=== PATIENT | female | born 1945 | race Caucasian/White ===

== ENCOUNTER 2018-08-01 14:42 | Outpatient (CLI) | payer MEDICARE, BC ==
--- NOTE | 2018-08-01 15:53 | XRAY Report ---
Reason: FINGER PAIN, RIGHT Procedure Date: 08/01/2018 Accession Number: [id number] / [id number] Procedure: XR - Finger(s) RT CPT Code: FULL RESULT: EXAM: RIGHT FIFTH DIGIT RADIOGRAPHY EXAM DATE: 08/01/2018 03:39 PM. CLINICAL HISTORY: Pain and swelling to the distal phalanx of the right fifth ray. Patient states that she jammed her finger when she fell. COMPARISON: None. TECHNIQUE: 3 views. FINDINGS: Bones: There is a fracture of the proximal aspect of the fifth middle phalanx with apex volar angulation and approximately 3 mm of volar translation of the distal fracture fragment and no intra-articular extension. Joints: Normal. No joint subluxations. Soft Tissues: Soft tissue swelling is seen around the fracture. IMPRESSION: Fifth finger fracture as described. RADIA The above findings left fifth middle phalanx fracture were discussed with Yajaira Jackson by Dr. Akshat Norris at 15:51 hrs on 08/01/18.
== END 2018-08-01 14:43 | disposition home or self-care (01) ==
LOC: DI 14:42
PROVIDERS: ATTEND Nurse Practitioner Family
DX: S62.626A Displaced fracture of middle phalanx of right little finger, initial encounter for closed fracture (principal)
CPT/HCPCS: 73140

== ENCOUNTER 2018-08-27 13:16 | Outpatient (CLI) | payer MEDICARE, BC | END 2018-08-27 13:17 | disposition home or self-care (01) | LOC: DI 13:16 | PROVIDERS: ATTEND Nurse Practitioner Family | DX: Z12.31 Encounter for screening mammogram for malignant neoplasm of breast (principal) | CPT/HCPCS: 77063; 77067 ==

== ENCOUNTER 2019-09-15 10:29 | Outpatient (CLI) | payer MEDICARE, BC ==
--- NOTE | 2019-09-16 11:51 | Mammography Report ---
Reason: ROUTINE MAMMO Procedure Date: 09/15/2019 Accession Number: [id number] / [id number] Procedure: MGS - Screening Mammo Dig w/Implants CPT Code: Final Report FULL RESULT: EXAM: Screening Mammo Dig w/Implants DATE: 09/15/2019 11:00 AM CLINICAL HISTORY: The patient is an asymptomatic 74-year-old female. Prior benign breast augmentation - silicone implants. No reported personal nor family history of breast cancer. TECHNIQUE: (B) - Bilateral CC and MLO views were obtained. Displaced implant views. COMPARISON: 08/27/2018, 01/10/2016, 11/07/2011 and 05/30/2010 PARENCHYMAL PATTERN: (A) - The breasts demonstrate scattered fibroglandular densities bilaterally. FINDINGS: Stable bilateral subpectoral silicone implants. The pattern of asymmetry is unchanged given positional differences. There are no suspicious masses, calcifications, or areas of distortion. IMPRESSION: Benign findings. BI-RADS category 2. RECOMMENDATION: (ANNUAL) - Recommend routine annual screening mammography. BI-RADS CATEGORY: (2) - Benign Findings. STANDARD QUALIFYING STATEMENTS: 1. This examination was reviewed with the aid of Computer-Aided Detection (CAD). 2. A negative or benign imaging report should not preclude biopsy if clinically suspicious findings are present. 3. Dense breasts may obscure an underlying neoplasm.
== END 2019-09-15 10:30 | disposition home or self-care (01) ==
LOC: DI.S 10:29
PROVIDERS: ATTEND Registered Nurse
DX: Z12.31 Encounter for screening mammogram for malignant neoplasm of breast (principal); Z98.82 Breast implant status
CPT/HCPCS: 36415; 77067; 80053; 80061; 83721; 84443; 85025

== ENCOUNTER 2019-09-15 12:46 | Outpatient (CLI) | payer MEDICARE, BC ==
[2019-09-15 17:21] LABS: BASOPHILS # (AUTO) 0.1 10^3/uL (0.0-0.1); BASOPHILS % (AUTO) 1.2 %; EOSINOPHILS # (AUTO) 0.4 10^3/uL (0.0-0.7); EOSINOPHILS % (AUTO) 4.9 %; HGB - HEMOGLOBIN 12.5 g/dL (12.0-16.0); LYMPHOCYTES # (AUTO) 1.7 10^3/uL (1.5-3.5); MEAN CORPUSCULAR HEMOGLOBIN 30.6 pg (27.0-31.0); MEAN CORPUSCULAR HGB CONC 31.7 g/dL (32.0-36.0); MEAN CORPUSCULAR VOLUME 96.6 fL (81.0-99.0); MEAN PLATELET VOLUME 10.7 fL (7.9-10.8); MONOCYTES # (AUTO) 0.9 10^3/uL (0.0-1.0); MONOCYTES % (AUTO) 11.4 %; NEUTROPHILS # (AUTO) 4.7 10^3/uL (1.5-6.6); NEUTROPHILS % (AUTO) 60.2 %; PLT - PLATELET COUNT 345 10^3/uL (130-450); RED BLOOD COUNT 4.08 10^6/uL (4.20-5.40); RED CELL DISTRIBUTION WIDTH 13.2 % (12.0-15.0); WHITE BLOOD COUNT 7.7 x10^3/uL (4.8-10.8)
[2019-09-15 17:49] LABS: ALBUMIN 4.2 g/dL (3.2-5.5); ALBUMIN/GLOBULIN RATIO 1.1 (1.0-2.2); ALKALINE PHOSPHATASE 62 IU/L (42-121); ALT ALANINE AMINOTRANSFERASE 18 IU/L (10-60); AST ASPARTATE AMINOTRANSFERASE 28 IU/L (10-42); BILIRUBIN,TOTAL 1.6 mg/dL (0.2-1.0); BUN - BLOOD UREA NITROGEN 27 mg/dL (6-20); CALCIUM 9.4 mg/dL (8.5-10.3); CARBON DIOXIDE - CO2 27 mmol/L (21-32); CHLORIDE 103 mmol/L (101-111); CHOL/HDL RATIO 3.4 (<4.4); CHOLESTEROL 219 mg/dL; GFR - MDRD 55 (>89); GLUCOSE 114 mg/dL (70-100); HDL CHOLESTEROL 64 mg/dL; LDL CHOLESTEROL,CALCULATED 141 mg/dL; LDL/HDL RATIO 2.2 (<4.4); SODIUM 138 mmol/L (135-145); TOTAL PROTEIN 7.9 g/dL (6.7-8.2); VLDL CHOLESTEROL 14 mg/dL
== END 2019-09-15 12:47 | disposition home or self-care (01) ==
LOC: LAB.S 12:46
PROVIDERS: ATTEND Registered Nurse
DX: E78.5 Hyperlipidemia, unspecified (principal); R03.0 Elevated blood-pressure reading, without diagnosis of hypertension
CPT/HCPCS: 36415; 80053; 80061; 83721; 84443; 85025

== ENCOUNTER 2020-03-30 11:45 | Outpatient (CLI) | payer BC, MEDICARE ==
[2020-03-30 15:32] LABS: CALCIUM 9.4 mg/dL (8.5-10.3); CREATININE 1.1 mg/dL (0.4-1.0)
== END 2020-03-30 11:46 | disposition home or self-care (01) ==
LOC: LAB.S 11:45
PROVIDERS: ATTEND Registered Nurse
DX: R94.4 Abnormal results of kidney function studies (principal)
CPT/HCPCS: 36415; 80048

== ENCOUNTER 2020-07-01 09:00 | Day surgery (SDC) | payer MEDICARE ==
[2020-07-01] MEDS ORDERED: fentaNYL 250 MCG/5 ML VIAL IVP ONE (09:01)
[2020-07-01] MEDS ORDERED: MIDAZOLAM 2 MG/2 ML VIAL IVP ONE (09:01)
[2020-07-01] MEDS ORDERED: LACTATED RINGERS 1,000 ML IV ONE (09:44)
[2020-07-01] MEDS ORDERED: LACTATED RINGERS 300 ML IV ONE (10:45)
[2020-07-01 11:16] VITALS: BP 133/65
== END 2020-07-01 09:01 | disposition home or self-care (01) ==
LOC: SDS 09:00
PROVIDERS: ATTEND Surgery
PROC: 0DBL8ZZ Excision of Transverse Colon, Via Natural or Artificial Opening Endoscopic (ICD-10-PCS; principal; 2020-07-01 11:30)
DX: Z12.11 Encounter for screening for malignant neoplasm of colon (principal); D12.3 Benign neoplasm of transverse colon; Z80.9 Family history of malignant neoplasm, unspecified; Z87.891 Personal history of nicotine dependence
CPT/HCPCS: 45380; J3010; J7120

== ENCOUNTER 2020-07-13 12:29 | Outpatient (CLI) | payer BC, MEDICARE ==
--- NOTE | 2020-07-13 12:59 | XRAY Report ---
PROCEDURE: Shoulder 3 View RT INDICATIONS: SHOULDER PAIN,RIGHT,TENDINITIS TECHNIQUE: 3 views of the shoulder were acquired. COMPARISON: None. FINDINGS: Bones: No fractures or dislocations. No suspicious bony lesions. Visualized ribs appear intact. Mi ld acromioclavicular joint and glenohumeral joint osteoarthritis. Soft tissues: Calcification noted adjacent to the lateral margin of the head of the humerus compatibl e with calcific tendinitis. IMPRESSION: 1. Mild, anechoic joint and glenohumeral joint osteoarthritis. 2. Rotator cuff calcific tendinitis. Reviewed by: Isabel Fields MD, PhD on 07/13/2020 12:58 PM PST Approved by: Isabel Fields MD, PhD on 07/13/2020 12:58 PM PST Station ID: [id number]
== END 2020-07-13 12:30 | disposition home or self-care (01) ==
LOC: DI.S 12:29
PROVIDERS: ATTEND Family Medicine
DX: M19.011 Primary osteoarthritis, right shoulder (principal); M75.31 Calcific tendinitis of right shoulder

== ENCOUNTER 2020-09-13 08:00 | Outpatient (CLI) | payer MEDICARE | END 2020-09-13 23:59 | disposition home or self-care (01) | LOC: LAB.R 08:00 | PROVIDERS: ATTEND Physician Assistant Medical | DX: R30.0 Dysuria (principal) | CPT/HCPCS: 87086; 87181 ==

== ENCOUNTER 2020-09-27 08:48 | Outpatient (CLI) | payer MEDICARE ==
[2020-09-27 16:02] LABS: BASOPHILS # (AUTO) 0.1 10^3/uL (0.0-0.1); BASOPHILS % (AUTO) 1.4 %; EOSINOPHILS # (AUTO) 0.3 10^3/uL (0.0-0.7); EOSINOPHILS % (AUTO) 4.1 %; HGB - HEMOGLOBIN 12.7 g/dL (12.0-16.0); LYMPHOCYTES # (AUTO) 1.7 10^3/uL (1.5-3.5); LYMPHOCYTES % (AUTO) 27.4 %; MEAN CORPUSCULAR HEMOGLOBIN 31.6 pg (27.0-31.0); MEAN CORPUSCULAR HGB CONC 32.3 g/dL (32.0-36.0); MEAN CORPUSCULAR VOLUME 97.8 fL (81.0-99.0); MEAN PLATELET VOLUME 10.4 fL (7.9-10.8); MONOCYTES # (AUTO) 0.6 10^3/uL (0.0-1.0); MONOCYTES % (AUTO) 9.1 %; NEUTROPHILS # (AUTO) 3.7 10^3/uL (1.5-6.6); NEUTROPHILS % (AUTO) 57.8 %; PLT - PLATELET COUNT 294 10^3/uL (130-450); RED BLOOD COUNT 4.02 10^6/uL (4.20-5.40); RED CELL DISTRIBUTION WIDTH 13.6 % (12.0-15.0); WHITE BLOOD COUNT 6.4 x10^3/uL (4.8-10.8)
[2020-09-27 16:34] LABS: ALBUMIN/GLOBULIN RATIO 1.1 (1.0-2.2); ALKALINE PHOSPHATASE 58 IU/L (42-121); ALT ALANINE AMINOTRANSFERASE 19 IU/L (10-60); AST ASPARTATE AMINOTRANSFERASE 24 IU/L (10-42); BILIRUBIN,TOTAL 0.7 mg/dL (0.2-1.0); BUN - BLOOD UREA NITROGEN 29 mg/dL (6-20); CALCIUM 9.2 mg/dL (8.5-10.3); CARBON DIOXIDE - CO2 26 mmol/L (21-32); CHLORIDE 103 mmol/L (101-111); CHOL/HDL RATIO 4.4 (<4.4); CHOLESTEROL 283 mg/dL; CREATININE 0.8 mg/dL (0.4-1.0); GLUCOSE 112 mg/dL (70-100); HDL CHOLESTEROL 65 mg/dL; LDL CHOLESTEROL,CALCULATED 193 mg/dL; SODIUM 136 mmol/L (135-145); TOTAL PROTEIN 7.8 g/dL (6.7-8.2); VLDL CHOLESTEROL 25 mg/dL
== END 2020-09-27 08:49 | disposition home or self-care (01) ==
LOC: LAB.S 08:48
PROVIDERS: ATTEND Registered Nurse
DX: N18.9 Chronic kidney disease, unspecified (principal); R30.0 Dysuria; R94.4 Abnormal results of kidney function studies; R03.0 Elevated blood-pressure reading, without diagnosis of hypertension; E78.5 Hyperlipidemia, unspecified
CPT/HCPCS: 36415; 80053; 80061; 83721; 85025

== ENCOUNTER 2020-11-30 12:54 | Outpatient (CLI) | payer MEDICARE, OTHER ==
--- NOTE | 2020-11-30 15:04 | CT Report ---
PROCEDURE: Low Dose Lung Cancer Screen INDICATIONS: HX OF SMOKING TECHNIQUE: Noncontrast low-dose 5 mm thick sections acquired from the pulmonary apices to the posterior costophr enic angles. 7 mm thick coronal and sagittal MIP reformats were then acquired. For radiation dose r eduction, the following was used: automated exposure control, adjustment of mA and/or kV according t o patient size. COMPARISON: None. FINDINGS: Image quality: Excellent. Lungs and pleura: Prominent partially calcified pleural parenchymal scarring is seen in the lung api rian bilaterally. Moderate centrilobular emphysema is noted. Perifissural groundglass 3 mm nodule in the left lower lobe (186/4). A few 2 mm solid nodules are see n in the posterior aspect of the left upper lobe (images 63, 64, and 68 of series 4). 4 mm solid subp leural nodule is seen at the right lung base (276/4). Mediastinum: Heart size is normal. No pericardial effusion. Moderate atherosclerotic calcifications are seen in the aorta. No mediastinal adenopathy by size criteria. Thoracic aorta and central pulmo nary arteries are normal in size. Mild/moderate aortic atherosclerosis. Esophagus is normal in calib er. No hiatal hernia. Bones and chest wall: Bilateral breast implants are present. No suspicious bony lesions. No vertebr al body compression fractures. No axillary or supraclavicular adenopathy by size criteria. The thyr oid is normal in size. Abdomen: Visualized upper abdomen solid organs and bowel loops appear normal in the absence of contr ast. IMPRESSION: 1. Nonspecific scattered 2 to 4 mm pulmonary nodules as described above. 2. Moderate centrilobular emphysema. 3. Biapical partially calcified pleural-parenchymal scarring. 4. Moderate coronary artery atherosclerotic calcifications. Lung RADS category 2; recommend annual screening with low-dose chest CT in 12 months. Reviewed by: Sina Bhat MD on 11/30/2020 2:02 PM KEVEN Approved by: Sina Bhat MD on 11/30/2020 2:02 PM AKJOJO Station ID: [id number]
== END 2020-11-30 12:55 | disposition home or self-care (01) ==
LOC: DI 12:54
PROVIDERS: ATTEND Registered Nurse
DX: Z12.2 Encounter for screening for malignant neoplasm of respiratory organs (principal); F17.210 Nicotine dependence, cigarettes, uncomplicated; J43.2 Centrilobular emphysema; R91.8 Other nonspecific abnormal finding of lung field

== ENCOUNTER 2021-11-16 11:07 | Outpatient (CLI) | payer MEDICARE, OTHER ==
--- NOTE | 2021-11-16 18:36 | CT Report ---
PROCEDURE: Low Dose Lung Cancer Screen INDICATIONS: CENTRILOBULAR EMPHYSEMA, MULTIPLE NODULES OF LUNG TECHNIQUE: Noncontrast low-dose images were acquired from the pulmonary apices to the posterior costophrenic ang les. Multiplanar MIP reformats were then acquired. For radiation dose reduction, the following was used: automated exposure control, adjustment of mA and/or kV according to patient size. COMPARISON: None. FINDINGS: Image quality: Excellent. Lungs and pleura: Extensive biapical pleural-parenchymal scarring with calcifications, and cephalad retraction of the pulmonary adonis typically represent chronic changes from granulomatous disease. Ther e is moderate centrilobular emphysema. Scattered tiny pulmonary nodules are stable. No new or increas ing pulmonary nodules. Mediastinum: Heart size is normal. No pericardial effusion. Moderate coronary artery calcifications . No mediastinal adenopathy by size criteria. Thoracic aorta and central pulmonary arteries are norm al in size. Esophagus is normal in caliber. No hiatal hernia. Bones and chest wall: No suspicious bony lesions. No vertebral body compression fractures. No axil jaqui or supraclavicular adenopathy by size criteria. The thyroid is normal in size and there are no incidental findings. Bilateral mammoplasties. Abdomen: Visualized upper abdomen solid organs and bowel loops appear normal in the absence of contr ast. IMPRESSION: 1. LungRads Category 2: Benign appearance or behavior-nodules with a very low likelihood of becoming a clinically active cancer due to size or lack of growth. 2. Annual follow-up low-dose noncontrast CT of the chest is recommended for lung cancer screening. 3. Clinically significant or potentially clinically significant findings (nonlung cancer): Extensive pleural-parenchymal scarring and cephalad retraction of the pulmonary adonis, typically indicating group program manager owen granulomatous disease, moderate centrilobular emphysema, moderate coronary artery calcifications. CLINICAL RECOMMENDATION STATEMENTS: In patients <35 years with an ITN detected on CT, MRI, or extrathyroidal ultrasound, the Committee re commends further evaluation with dedicated thyroid ultrasound if the nodule is "e1 cm and has no susp icious imaging features, and if the patient has normal life expectancy. In patients "e35 years with an ITN detected on CT, MRI, or extrathyroidal ultrasound, the Committee r ecommends further evaluation with dedicated thyroid ultrasound if the nodule is "e1.5 cm and has no s uspicious imaging features, and if the patient has normal life expectancy. (ACR, 2014) Reviewed by: Juan C Dave MD on 11/16/2021 5:35 PM [place] Approved by: Juan C Dave MD on 11/16/2021 5:35 PM [place] Station ID: [id number]
== END 2021-11-16 11:08 | disposition home or self-care (01) ==
LOC: DI 11:07
PROVIDERS: ATTEND Registered Nurse
DX: Z12.2 Encounter for screening for malignant neoplasm of respiratory organs (principal); J43.2 Centrilobular emphysema; R91.8 Other nonspecific abnormal finding of lung field; Z87.891 Personal history of nicotine dependence

== ENCOUNTER 2021-12-12 09:19 | Outpatient (CLI) | payer MEDICARE, OTHER ==
[2021-12-12 15:23] LABS: BASOPHILS # (AUTO) 0.1 10^3/uL (0.0-0.1); BASOPHILS % (AUTO) 1.7 %; EOSINOPHILS # (AUTO) 0.4 10^3/uL (0.0-0.7); EOSINOPHILS % (AUTO) 6.5 %; HCT - HEMATOCRIT 38.2 % (37.0-47.0); HGB - HEMOGLOBIN 12.2 g/dL (12.0-16.0); LYMPHOCYTES # (AUTO) 2.1 10^3/uL (1.5-3.5); LYMPHOCYTES % (AUTO) 31.5 %; MEAN CORPUSCULAR HEMOGLOBIN 30.7 pg (27.0-31.0); MEAN CORPUSCULAR HGB CONC 31.9 g/dL (32.0-36.0); MEAN PLATELET VOLUME 10.7 fL (7.9-10.8); MONOCYTES # (AUTO) 0.9 10^3/uL (0.0-1.0); MONOCYTES % (AUTO) 13.5 %; NEUTROPHILS # (AUTO) 3.1 10^3/uL (1.5-6.6); NEUTROPHILS % (AUTO) 46.5 %; PLT - PLATELET COUNT 314 10^3/uL (130-450); RED BLOOD COUNT 3.98 10^6/uL (4.20-5.40); RED CELL DISTRIBUTION WIDTH 13.3 % (12.0-15.0); WHITE BLOOD COUNT 6.6 x10^3/uL (4.8-10.8)
[2021-12-12 15:58] LABS: ALBUMIN 3.7 g/dL (3.2-5.5); ALBUMIN/GLOBULIN RATIO 1.2 (1.0-2.2); ALKALINE PHOSPHATASE 58 IU/L (42-121); ALT ALANINE AMINOTRANSFERASE 15 IU/L (10-60); AST ASPARTATE AMINOTRANSFERASE 21 IU/L (10-42); BILIRUBIN,TOTAL 1.1 mg/dL (0.2-1.0); BUN - BLOOD UREA NITROGEN 24 mg/dL (6-20); CALCIUM 9.3 mg/dL (8.5-10.3); CARBON DIOXIDE - CO2 24 mmol/L (21-32); CHLORIDE 98 mmol/L (101-111); CHOL/HDL RATIO 3.7 (<4.4); CHOLESTEROL 206 mg/dL; CREATININE 0.7 mg/dL (0.4-1.0); GFR - MDRD 82 (>89); GLUCOSE 92 mg/dL (70-100); HDL CHOLESTEROL 56 mg/dL; LDL CHOLESTEROL,CALCULATED 135 mg/dL; LDL/HDL RATIO 2.4 (<4.4); POTASSIUM 4.4 mmol/L (3.5-5.0); SODIUM 131 mmol/L (135-145); TOTAL PROTEIN 6.9 g/dL (6.7-8.2); TRIGLYCERIDES 77 mg/dL; VLDL CHOLESTEROL 15 mg/dL
== END 2021-12-12 09:20 | disposition home or self-care (01) ==
LOC: LAB.S 09:19
PROVIDERS: ATTEND Family Medicine
DX: R53.83 Other fatigue (principal); R06.02 Shortness of breath
CPT/HCPCS: 36415; 80053; 80061; 83721; 84443; 85025

== ENCOUNTER 2021-12-20 12:42 | Observation (INO) | payer MEDICARE, OTHER ==
[2021-12-20] MEDS ORDERED: ASPIRIN CHEW 81 MG TABLET PO STA (13:01)
--- NOTE | 2021-12-20 13:03 | ED Physician Documentation ---
PD HPI CHEST PAIN - Stated complaint Stated Complaint: TIGHT CHEST,FATIGUE - Chief complaint Chief Complaint: Cardiac - History obtained from History obtained from: Patient - Additional information Additional information: 76-year-old woman presents by private vehicle with her for evaluation of chest pressure. She has no history of coronary disease but risk factors include former smoker having quit 22 years ago with emphysema, hypercholesterolemia. For the last 2 to 3 weeks she has had fairly constant chest pressure, sometimes better, sometimes worse. Often radiating to the neck. She does not notice any association with exertion. She is short of breath with it which was worse [place] She denies pedal edema or calf pain. No fevers or cough. She saw her primary care physician on December 08 for this and was referred to both pulmonology and cardiology. She has a pulmonology appointment in a few days, cardiology appointment has not yet been scheduled. Review of Systems Ten Systems: 10 systems reviewed and negative Constitutional: reports: Fatigue. denies: Fever, Chills Throat: denies: Sore throat Cardiac: reports: Chest pain / pressure. denies: Palpitations, Pedal edema, Calf pain Respiratory: reports: Dyspnea. 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 - Present Medications Home Medications: Ambulatory Orders Medication Instructions Recorded Confirmed DULoxetine [Cymbalta] 30 mg PO DAILY 06/30/20 12/20/21 Atorvastatin [Lipitor] 40 mg ORAL HS 12/20/21 12/20/21 - Allergies Allergies/Adverse Reactions: Allergies Allergy/AdvReac Type Severity Reaction Status Date / Time No Known Drug Allergies Allergy Verified 12/20/21 12:45 PD ED PE NORMAL - Vitals Vital signs reviewed: Yes - General General: Alert and oriented X 3, No acute distress - HEENT HEENT: PERRL, EOMI - Neck Neck: Supple, no meningeal sign, No bony TTP - Cardiac Cardiac: RRR, No murmur - Respiratory Respiratory: No respiratory distress, Clear bilaterally - Abdomen Abdomen: Non tender - Back Back: No CVA TTP, No spinal TTP - Derm Derm: Normal color, Warm and dry - Extremities Extremities: No edema, No calf tenderness / cord - Neuro Neuro: Alert and oriented X 3, Normal speech Results - Vitals Vitals: Vital Signs - 24 hr 12/20/21 12:45 Temperature 36.6 C Heart Rate 71 Respiratory 18 Rate Blood Pressure 193/55 H O2 Saturation 99 Oxygen O2 Source Room air - EKG (time done) 1251 Rate: Rate (enter#) (66) Rhythm: NSR [place]: LAD Intervals: Normal [place] QRS: Normal Ischemia: Other (RSR' V1). No: ST elevation c/w ischemia, ST depression - Labs Labs: Laboratory Tests 12/20/21 12/20/21 12/20/21 13:17 13:17 13:17 WBC 7.5 RBC 3.95 L Hgb 12.4 Hct 37.0 MCV 93.7 MCH 31.4 H MCHC 33.5 RDW 13.3 Plt Count 329 MPV 9.9 Neut # (Auto) 4.0 Lymph # (Auto) 2.1 [place] # (Auto) 0.8 Eos # (Auto) 0.5 Baso # (Auto) 0.1 Absolute Nucleated RBC 0.00 Nucleated RBC % 0.0 Sodium 137 Potassium 4.3 Chloride 103 Carbon Dioxide 23 Anion Gap 11.0 BUN 30 H Creatinine 1.0 Estimated GFR (MDRD) 54 L Glucose 93 Calcium 9.5 Total Bilirubin 0.9 AST 24 ALT 17 Alkaline Phosphatase 62 Troponin I High Sens 6.4 Total Protein 7.5 Albumin 4.1 Globulin 3.4 Albumin/Globulin Ratio 1.2 Lipase 47 - Rads (name of study) Single view chest x-ray is normal Radiology: EMP read contemporaneously PD MEDICAL DECISION MAKING - ED course ED course: 76-year-old woman presents with concerning chest pain. Its been going on for some time, but has been coming and going. Initial history was that it was nonexertional but then she said it probably was exertional. She is been referred to cardiology, but no appointment yet due to some delays. Heart score is 4 for me. Nothing in the history or physical concerning for PE/thromboembolic disease. Trope negative. Spoke with Dr. Au for admission for obvious and potential stress testing and he accepts at 2 PM. Departure - Departure Disposition: ED Place in Observation Clinical Impression: Chest pain Condition: Serious
--- NOTE | 2021-12-20 13:10 | XRAY Report ---
PROCEDURE: Chest 1 View X-Ray INDICATIONS: Chest Pain TECHNIQUE: One view of the chest was acquired. COMPARISON: None FINDINGS: Surgical changes and devices: None. Lungs and pleura: No pleural effusions or pneumothorax. Lungs are clear. Mediastinum: Mediastinal contours appear normal. Heart size is normal. Bones and chest wall: No suspicious bony lesions. Overlying soft tissues appear unremarkable. IMPRESSION: No acute process. Reviewed by: Baldo Law MD on 12/20/2021 1:08 PM PDT Approved by: Baldo Law MD on 12/20/2021 1:08 PM PDT Station ID: [id number]
[2021-12-20 13:24] LABS: BASOPHILS # (AUTO) 0.1 10^3/uL (0.0-0.1); BASOPHILS % (AUTO) 1.1 %; EOSINOPHILS # (AUTO) 0.5 10^3/uL (0.0-0.7); EOSINOPHILS % (AUTO) 6.9 %; HGB - HEMOGLOBIN 12.4 g/dL (12.0-16.0); LYMPHOCYTES # (AUTO) 2.1 10^3/uL (1.5-3.5); MEAN CORPUSCULAR HEMOGLOBIN 31.4 pg (27.0-31.0); MEAN CORPUSCULAR HGB CONC 33.5 g/dL (32.0-36.0); MEAN CORPUSCULAR VOLUME 93.7 fL (81.0-99.0); MEAN PLATELET VOLUME 9.9 fL (7.9-10.8); MONOCYTES # (AUTO) 0.8 10^3/uL (0.0-1.0); MONOCYTES % (AUTO) 10.9 %; NEUTROPHILS % (AUTO) 52.8 %; PLT - PLATELET COUNT 329 10^3/uL (130-450); RED BLOOD COUNT 3.95 10^6/uL (4.20-5.40); RED CELL DISTRIBUTION WIDTH 13.3 % (12.0-15.0); WHITE BLOOD COUNT 7.5 x10^3/uL (4.8-10.8)
[2021-12-20 13:41] LABS: ALBUMIN 4.1 g/dL (3.2-5.5); ALBUMIN/GLOBULIN RATIO 1.2 (1.0-2.2); BILIRUBIN,TOTAL 0.9 mg/dL (0.2-1.0); CALCIUM 9.5 mg/dL (8.5-10.3); POTASSIUM 4.3 mmol/L (3.5-5.0); TOTAL PROTEIN 7.5 g/dL (6.7-8.2)
[2021-12-20] MEDS ORDERED: ONDANSETRON ODT 4 MG TABLET TL PRN (14:04)
[2021-12-20] MEDS ORDERED: ACETAMINOPHEN 325 MG TABLET PO PRN (14:04)
[2021-12-20] MEDS ORDERED: SODIUM CHLORIDE FLUSH 0.9% 10 ML SYRINGE IVP PRN (14:04)
--- NOTE | 2021-12-20 14:14 | HISTORY & PHYSICAL EXAMINATION ---
Chief Complaint - Chief Complaint Chief Complaint: Chest pain History of Present Illness - Admitted From Admitted From:: Home - History Obtained From Records Reviewed: Danielito Duval History obtained from: Patient, ER Physician, EMR - History of Present Illness HPI Comment/Other: This is a 76-year-old female with a past medical history significant for anxiety/depression, hyperlipidemia who presents today complaining of chest pain. She states that she was recently told she had emphysema on CT of the chest. Her primary care physician referred her to a manager etl and ordered pulmonary function testing which she is scheduled to do this Saturday. She is currently not on any inhalers. She states over the past month she has developed chest pain/pressure that has progressed over the past few days. She states it is worse with activity and radiates up to her throat. She does have associated dyspnea and lightheadedness. She has had occasional palpitations. No diaphoresis or nausea/vomiting. She reports smoking a pack a day for 35 years but quit over 22 years ago. She does not have a family history of coronary artery disease but her father did have an arrhythmia and required a pacemaker. She does have blood per hyperlipidemia and her recent the panel showed an LDL over 130. Her Lipitor was recently increased to 40 mg from 20 mg. She does not take aspirin. She states her chest pain/pressure also occasionally occurs at r est. She denies having a history of hypertension and states her blood pressure usually controlled during her outpatient visits Her EKG in the emergency room showed a sinus rhythm. Her initial troponin was negative. Given her heart score is 4, medicine was consulted for admission. We discussed goals of care and she would like to be a full code. 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 She denies a history of coronary artery disease. Living arrangement: At home Social History Notes: She smoked a pack a day for 35 years but quit 22 years ago. She drinks 1 glass of wine each night. She does smoke marijuana on a nightly basis. Meds/Allgy - Home Medications Home Medications: Ambulatory Orders Medication Instructions Recorded Confirmed DULoxetine [Cymbalta] 30 mg PO DAILY 06/30/20 12/20/21 Atorvastatin [Lipitor] 40 mg ORAL HS 12/20/21 12/20/21 - Allergies Allergies/Adverse Reactions: Allergies Allergy/AdvReac Type Severity Reaction Status Date / Time No Known Drug Allergies Allergy Verified 12/20/21 12:45 Review of Systems - Cardiovascular Cariovascular: reports: Palpitations, Chest pain, Lightheadedness, Exertional dyspnea, Decr. exercise tolerance. denies: Edema, Syncope - Respiratory Respiratory: reports: SOB with exertion. denies: Cough, SOB at rest - Gastrointestinal Gastrointestinal: reports: Constipation. denies: Abdominal pain, Nausea, Vomiting, Reflux/heartburn - Musculoskeletal Musculoskeletal: denies: Muscle pain - Integumentary Integumentary: denies: Rash - Neurological Neurological: denies: General weakness, Focal weakness - All Other Systems All Other Systems: reports: Reviewed and negative Prior Level of Functionality: She is independent with her ADLs. Exam - Vital Signs Reviewed Vital Signs: Yes Vital Signs: Vital Signs x48h Temp Pulse Resp BP Pulse Ox 12/20/21 12:45 36.6 C 71 18 193/55 H 99 - Physical Exam General Appearance: positive: No acute distress, Alert Eyes Bilateral: positive: Normal inspection, Conjunctivae nml ENT: positive: ENT inspection nml Neck: positive: Nml inspection Respiratory: positive: Chest non-tender, No respiratory distress. negative: Wheezes, Rales Cardiovascular: positive: Regular rate & rhythm, No murmur. negative: Tachycardia Abdomen: positive: Non-tender, No distention. negative: Tenderness Skin: positive: Warm, Dry Extremities: positive: No pedal edema Neurologic/Psychiatric: positive: Motor nml. negative: Disoriented to person, Disoriented to place, Disoriented to time Conclusion/Plan - Problem List (1) Chest pain Conclusion/Plan: She presents with chest pain and has a heart score of 4. EKG does not suggest ischemia and her troponin is normal. She has a prior smoking history and has hyperlipidemia as well as hypertension. We will place her in observation. We will trend her troponin and monitor on telemetry. Continue aspirin 81 mg daily. We have ordered a stress test for the morning. If this suggests ischemia then we will discuss with cardiology regarding transfer. (2) Hyperlipidemia Conclusion/Plan: Her LDL is greater than 130 and he will continue her home Lipitor 40 mg in the evening which was recently increased. (3) Elevated blood pressure reading Conclusion/Plan: Her blood pressure is elevated here with systolics in the 180s. I reviewed her outpatient records and her last blood pressure during an outpatient visit was 130 systolic. We will monitor the start that day and if it remains elevated we will start her on amlodipine. (4) COPD (chronic obstructive pulmonary disease) Conclusion/Plan: This was evident on the CT of the chest. This is not an exacerbation. We will continue with albuterol as needed. (5) Anxiety Conclusion/Plan: We will continue her home duloxetine. - Lab Results Lab results reviewed: Yes Jose A Bones: 12/20/21 13:17 12/20/21 13:17 - Diagnostic Imaging Results Diagnostic Imaging Results: positive: Final report reviewed - EKG Results EKG Interpreted Independently: Yes EKG Findings: EKG reveals a sinus rhythm without evidence of ischemia. Core Measures - Anticipated LOS I expect patient to be DC'd or transferred within 96 hours.: Yes - Issues Hospital Issues and Management Plan: 76-year-old female presents with chest pain and has a heart score of 4. We will place in observation for stress test. - DVT/VTE - Prophylaxis VTE/DVT Device ordered at admit?: Yes VTE/DVT Prophylaxis med ordered at admit?: No
[2021-12-20] MEDS ORDERED: ALBUTEROL NEB 2.5 MG/3 ML INH PRN (14:15)
[2021-12-20] MEDS: SODIUM CHLORIDE FLUSH 0.9% 10 ML SYRINGE IVP SCH (18:11)
[2021-12-20] MEDS ORDERED: ATORVASTATIN 40 MG TABLET PO SCH (21:00)
[2021-12-21] MEDS: SODIUM CHLORIDE FLUSH 0.9% 10 ML SYRINGE IVP SCH ×2 (00:23→08:19)
[2021-12-21 05:26] LABS: BASOPHILS # (AUTO) 0.1 10^3/uL (0.0-0.1); BASOPHILS % (AUTO) 0.9 %; EOSINOPHILS # (AUTO) 0.6 10^3/uL (0.0-0.7); EOSINOPHILS % (AUTO) 7.2 %; HGB - HEMOGLOBIN 12.1 g/dL (12.0-16.0); LYMPHOCYTES # (AUTO) 2.6 10^3/uL (1.5-3.5); LYMPHOCYTES % (AUTO) 32.8 %; MEAN CORPUSCULAR HEMOGLOBIN 30.7 pg (27.0-31.0); MEAN CORPUSCULAR HGB CONC 32.7 g/dL (32.0-36.0); MEAN CORPUSCULAR VOLUME 93.9 fL (81.0-99.0); MEAN PLATELET VOLUME 10.2 fL (7.9-10.8); MONOCYTES # (AUTO) 0.9 10^3/uL (0.0-1.0); MONOCYTES % (AUTO) 11.2 %; NEUTROPHILS # (AUTO) 3.9 10^3/uL (1.5-6.6); NEUTROPHILS % (AUTO) 47.7 %; PLT - PLATELET COUNT 309 10^3/uL (130-450); RED BLOOD COUNT 3.94 10^6/uL (4.20-5.40); RED CELL DISTRIBUTION WIDTH 13.2 % (12.0-15.0); WHITE BLOOD COUNT 8.1 x10^3/uL (4.8-10.8)
[2021-12-21 05:39] LABS: CALCIUM 9.2 mg/dL (8.5-10.3); CREATININE 0.8 mg/dL (0.4-1.0)
[2021-12-21] MEDS ORDERED: ATORVASTATIN 40 MG TABLET PO SCH (09:00)
[2021-12-21] MEDS ORDERED: DULoxetine 30 MG CAPSULE PO SCH (09:00)
[2021-12-21] MEDS ORDERED: ASPIRIN CHEW 81 MG TABLET PO SCH (09:00)
--- NOTE | 2021-12-21 11:27 | Discharge Plan ---
Discharge Plan Problem Reviewed?: Yes Disposition: Home, Self Care Condition: Stable Prescriptions: Albuterol Sulf [Ventolin Hfa Inhaler] 1 - 2 puffs INH Q4HR PRN #18 gm PRN Reason: Shortness Of Air/Wheezing Atorvastatin [Lipitor] 40 mg PO DAILY #30 tablet Diet: Regular Health Concerns: You were admitted to the hospital because of chest pain. We did a stress test which did not appear to show evidence of heart disease. We suspect your chest pain may be related to your COPD/lungs. I have sent a prescription for albuterol to take as needed. Please follow-up with the building rental manager as scheduled tomorrow as they will likely obtain lung testing called pulmonary function testing/spirometry and will prescribe you other inhalers for your COPD. Plan of Treatment: Please follow-up with the binding printer as scheduled on outpatient basis. Please continue to follow-up with your primary care doctor and building rental manager to get further work-up of your lungs. You should have an echocardiogram done at some point which is an ultrasound of your heart. Your blood pressure is a little elevated here but improved compared to when you first came in. Please continue to follow-up with your primary care physician. If your blood pressure remains elevated you will need a blood pressure medication. Assessment: Patient expressed understanding of the treatment plan. Additional Instructions or Follow Up instructions: Please continue to follow-up with your primary care physician, building rental manager, binding printer as scheduled. You should have an ultrasound of your heart obtained on an outpatient basis. Please return to the emergency department if you develop any fevers, chills, worsening chest pain, dyspnea, leg swelling. No Smoking: If you smoke, Please STOP! Call for help. Follow-up with: Jocy Garnett MD [Primary Care Provider] -
--- NOTE | 2021-12-21 14:18 | Nuclear Medicine Report ---
PROCEDURE: Rest and exercise myocardial perfusion SPECT with gated imaging and ejection fraction INDICATIONS: Chest pain. RADIOPHARMACEUTICAL: 12.4 mCi Tc-99m Myoview IV at rest and 55.7 mCi Tc-99m Myoview IV at peak exerc ise. [id number] was performed. TECHNIQUE: Radiopharmaceutical was injected at peak stress test, and also at rest. SPECT images wer e obtained. SPECT myocardial perfusion images were displayed in short axis, horizontal long axis, an d vertical long axis views. Gated images were reviewed using Auto[employer] software. COMPARISON: None available. FINDINGS: Raw data: There is good myocardial labeling by radiotracer. No significant motion artifacts. Lung- to-heart ratio is 0.31(normal is less than 0.46 for tetrafosmin tracer). Left ventricle function: Gated images demonstrate normal left ventricle wall thickening. No segment al wall motion abnormality. No transient ischemic dilation; TID is 0.96 (normal less than 1.30). Th e left ventricle resting end-diastolic volume is normal. Left ventricle stress ejection fraction is >70%; normal values are above 45%. Myocardial perfusion: There is a small, mild, partially reversible perfusion defect in the anterior apex, most likely caused by breast attenuation artifact. There is otherwise normal distribution of ac tivity in the left and right ventricular myocardium. IMPRESSION: 1. Probably normal myocardial perfusion images. There is a small, mild, partially reversible perfusio n defect in the anterior apex, most likely caused by breast attenuation artifact. A small, very mild ischemia in the anterior apex is felt less likely but not entirely excluded. 2. Normal left ventricular volume and systolic function. The apex contracts normally. 3. Please correlate with stress EKG result. PQRS ATTESTATIONS: Measure 322 - Is this imaging test primarily performed on a low-risk surgery patient for preoperative evaluation within 30 days preceding their low-risk non-cardiac surgery? Low-risk surgery is defined as cardiac or myocardial infarction less than 1%, including (but not limited to) endoscopic pr ocedures, superficial procedures, cataract surgery, and excisional breast surgery: Answer: No Measure 323 - Is this imaging test performed primarily for the monitoring of an asymptomatic patient who had percutaneous coronary intervention on the visit date or within 2 years of the visit date? An swer: No Measure 324 - Is this imaging test performed primarily for the initial detection and risk assessment on an asymptomatic, low coronary heart disease patient? Low CHD risk definition = clinicians should consider the maximum number of available patient factors used to estimate risk based on [place] (A TP III criteria), typically age, gender, diabetes, smoking status, and use of blood pressure medicati on, and integrate age appropriate estimates for missing elements, such as LDL or standard blood press ure. Answer: No Reviewed by: Farideh Macias MD on 12/21/2021 2:16 PM PDT Approved by: Farideh Macias MD on 12/21/2021 2:16 PM PDT Station ID: [id number]
--- NOTE | 2021-12-21 14:23 | DISCHARGE SUMMARY ---
"Discharge Summary Admit Date: 12/20/21 Discharge Date: 12/21/21 Discharging Provider: Rajeev Au Primary Care Provider: Jocy Garnett Code Status: Attempt Resuscitation Condition at Discharge: Stable Discharge Disposition: 01 Home, Self Care - DIAGNOSES Admission Diagnoses: Chest pain Hyperlipidemia Elevated blood pressure reading COPD Anxiety Discharge Diagnoses with Status of Each Condition: Chest pain - resolved. Hyperlipidemia - stable. Elevated blood pressure reading - improved. COPD - stable Anxiety - stable. - HPI History of Present Illness: This is a 76-year-old female with a past medical history significant for anxiety/depression, hyperlipidemia who presents today complaining of chest pain. She states that she was recently told she had emphysema on CT of the chest. Her primary care physician referred her to a painter decorator and ordered pulmonary function testing which she is scheduled to do this Saturday. She is currently not on any inhalers. She states over the past month she has developed chest pain/pressure that has progressed over the past few days. She states it is worse with activity and radiates up to her throat. She does have associated dyspnea and lightheadedness. She has had occasional palpitations. No diaphoresis or nausea/vomiting. She reports smoking a pack a day for 35 years but quit over 22 years ago. She does not have a family history of coronary artery disease but her father did have an arrhythmia and required a pacemaker. She does have blood per hyperlipidemia and her recent the panel showed an LDL over 130. Her Lipitor was recently increased to 40 mg from 20 mg. She does not take aspirin. She states her chest pain/pressure also occasionally occurs at rest. She denies having a history of hypertension and states her blood pressure usually controlled during her outpatient visits Her EKG in the emergency room showed a sinus rhythm. Her initial troponin was negative. Given her heart score is 4, medicine was consulted for admission. We discussed goals of care and she would like to be a full code. - CONSULTS | PROCEDURES Procedures: She underwent an exercise stress test which did not suggest evidence of ischemia. Myocardial perfusion imaging revealed a normal left ventricular volume and systolic function. The apex contracts normally. Probably normal myocardial perfusion images. There is a small, mild, partially reversible perfusion defect in the anterior apex, most likely caused by breast attenuation artifact. A small, very mild ischemia to the apex is felt less likely but not entirely excluded. - HOSPITAL COURSE Hospital Course: She was placed in observation given she presented with chest pain and had a heart score of 4. Her troponins were trended and these were normal. Her EKG reveals a sinus rhythm. She underwent an exercise stress test with myocardial perfusion imaging which did not suggest ischemia. Myocardial perfusion imaging revealed a small, mild, partially reversible fusion defect in the anterior apex which was felt to be breast attenuation artifact. The patient was prescribed albuterol on discharge for her COPD and asked to follow-up with her painter decorator tomorrow as scheduled she will need pulmonary function testing and appropriate maintenance inhaler therapy for the COPD. She will also need an echocardiogram on an outpatient basis. This was not done as we do not have this service available. Her blood pressure is also noted to be elevated at times here. I have recommended she continue to follow-up with her primary care physician and if her blood pressure remains elevated then she will need antihypertensives. - ALLERGIES Allergies/Adverse Reactions: Allergies Allergy/AdvReac Type Severity Reaction Status Date / Time No Known Drug Allergies Allergy Verified 12/20/21 12:45 - MEDICATIONS Home Medications: Ambulatory Orders Medication Instructions Recorded Confirmed DULoxetine [Cymbalta] 30 mg PO DAILY 06/30/20 12/20/21 Albuterol Sulf [Ventolin Hfa 1 - 2 puffs INH Q4HR PRN #18 gm 12/21/21 Inhaler] Atorvastatin [Lipitor] 40 mg PO DAILY #30 tablet 12/21/21 - PHYSICAL EXAM AT DISCHARGE General Appearance: positive: No acute distress, Alert Eyes Bilateral: positive: Normal inspection, Conjunctivae nml ENT: positive: ENT inspection nml Neck: positive: Nml inspection Respiratory: positive: No respiratory distress. negative: Wheezes, Rales Cardiovascular: positive: Regular rate & rhythm. negative: Tachycardia, Systolic murmur Abdomen: positive: Non-tender, No distention. negative: Tenderness Skin: positive: Warm, Dry Extremities: positive: No pedal edema Neurologic/Psychiatric: positive: Motor nml. negative: Disoriented to person, Disoriented to place - LABS Result Diagrams: 12/21/21 04:37 12/21/21 04:37 - DIAGNOSTIC IMAGING Diagnostic Imaging Results: Final report reviewed - FOLLOW UP Follow Up: She will follow up with her painter decorator tomorrow as scheduled. She will need an outpatient echocardiogram and pulmonary function testing as well as appropriate inhaler therapy for her COPD. We have just prescribed her albuterol for now as she would like to see her painter decorator tomorrow first. - TIME SPENT Time Spent in Discharge (Minutes): 32"
--- NOTE | 2021-12-21 14:43 | PHARMACY PROGRESS NOTE ---
- Best Possible Medication History Admit Date and Time: 12/20/21 1404 Processed by: Pharmacy Medication History completed: Yes Secondary Source(s): Physician records, Pharmacy records, Insurance records As the person ultimately responsible for medication therapy, providers are able to order a medication from an existing home medication list in [facility] via the "Reconcile Routine" prior to Confirmation of that medication by family readiness support assistant. Such practice is discouraged except when the physician, in their clinical judgment, deems that a medical need exists for a medication without regard to previous use.
[2021-12-21 15:14] VITALS: BP 139/66
--- NOTE | 2021-12-21 16:41 | CARDIAC PROCEDURE NOTE ---
Stress Test Report Service Date: 12/21/21 Ordering Provider: Dr Au (Hospitalist), Jocy Garnett (PCP) Indication for Test: Chest pain Cardiac Risk Factors: Post-menopausal status, smoker, Family Hx of heat disease Type of Stress Test: ETT with Myocardial Perfusion Imaging Procedure: After signing informed consent, the patient exercised for 6 min on a Macario- protocol treadmill stress test. She achieved a peak HR of 129 (88% pred max HR for age), and reached 7.05 METS. Patient rated her perceived exertion at 17- 18/20 at peak exercise, on the Kevin scale and was severely SOB. She developed SOB at the end of stage 1. Her oxygen saturation was 98% on room air at rest, and dropped to 96% on room air during exercise. She reported that she had chest discomfort at rest, rated 1/10, and chest discomfort ("tightness") increased to 5/10 at peak exercise, then decreased back to 1/10 in recovery. Normal HR response to exercise: Resting HR: 57 Peak HR: 129 (88% PMHR) Hypertensive BP response to exercise: Resting BP: 132/61 Peak BP: 261/78 EKG at baseline : NSR, left atrial enlargement, otherwise WNL. EKG at peak: no ischemic ST segment changes or T wave changes seen. Summary: 1) Poor exercise tolerance 2) Hypertensive BP response to exercise. 3) Atypical chest pain is present: it is constant for days at rest, worse with lying supine and with exercise. 4) No ischemic changes develop with exercise by EKG criteria. 5) Nuclear images were reported separately and showed: breast artifact, no ischmic or fixed defects seen, normal LVEF >70% CONCLUSION : 1) Suspect this is non-anginal chest pain 2) Marked pulmonary symptoms develop with exercise 3) Hypertensive BP response to exertion 4) This patient's cardiac risk: Low-Moderate.
== END 2021-12-21 15:14 | disposition home or self-care (01) ==
LOC: ED 12:42 → MS2 14:04
PROVIDERS: ADMIT Internal Medicine; ATTEND Internal Medicine
DX: R07.89 Other chest pain (principal); E78.5 Hyperlipidemia, unspecified; J43.9 Emphysema, unspecified; F41.9 Anxiety disorder, unspecified; Z20.822 Contact with and (suspected) exposure to COVID-19; F32.A Depression, unspecified; Z87.891 Personal history of nicotine dependence; I10 Essential (primary) hypertension
CPT/HCPCS: 36415; 71045; 78452; 80048; 80053; 81599; 83690; 84484; 85025; 87635; 93005; 93017; 94640; 99284; 99285; A9270; A9500; G0378; 83036

== ENCOUNTER 2023-01-03 07:00 | Outpatient (CLI) | payer MEDICARE, OTHER ==
--- NOTE | 2023-01-03 12:55 | XRAY Report ---
PROCEDURE: Chest 2 View X-Ray INDICATIONS: ACUTE COPD EXACERBATION TECHNIQUE: 2 views of the chest were acquired. COMPARISON: 12/20/2021 FINDINGS: Surgical changes and devices: None. Lungs and pleura: Hyperinflation chronic interstitial changes with biapical pulmonary scarring. No f ocal infiltrate, pneumothorax or pleural effusion. Mediastinum: Mediastinal contours appear normal. Heart size is normal. Bones and chest wall: No suspicious bony lesions. Overlying soft tissues appear unremarkable. IMPRESSION: Hyperinflation chronic interstitial changes without focal infiltrate Reviewed by: Naeem Juarez MD on 01/03/2023 11:54 AM KEVEN Approved by: Naeem Juarez MD on 01/03/2023 11:54 AM KEVEN Station ID: [id number]
== END 2023-01-03 23:59 | disposition home or self-care (01) ==
LOC: DI.S 07:00
PROVIDERS: ATTEND Physician Assistant
DX: J44.1 Chronic obstructive pulmonary disease with (acute) exacerbation (principal)

== ENCOUNTER 2023-03-07 13:31 | Outpatient (CLI) | payer MEDICARE, OTHER ==
--- NOTE | 2023-03-07 17:26 | CT Report ---
PROCEDURE: CHEST WO INDICATIONS: LUNG NODULES TECHNIQUE: Noncontrast 1mm axial images were acquired from the pulmonary apices to the posterior costophrenic an gles. Axial 5 mm soft tissue kernel reconstructions were performed as well as 8 mm axial MIP and cor onal and sagittal 5 mm reformations. For radiation dose reduction, the following was used: automate d exposure control, adjustment of mA and/or kV according to patient size. COMPARISON: FINDINGS: Image quality: Excellent. Lungs and pleura: Apical scarring and calcification is redemonstrated similar in extent to the study dated 11/30/2020. As before, there is severe centrilobular emphysema with an apical predominance. Pleu ral-based 3 and 4 mm pulmonary nodules in the right lower lobe are unchanged from the study dated 11/08. No pleural effusions. No pneumothorax. No suspicious pulmonary nodules which require follow up. Mediastinum: Heart size is normal. No pericardial effusion. No large vessel abnormality. No mediastin al adenopathy by size criteria. Chest wall and lower neck: Thyroid is unremarkable. No axillary or supraclavicular adenopathy by size . Bilateral breast implants appear grossly intact. Bones: No aggressive osseous abnormality. Upper Abdomen: Unremarkable. IMPRESSION: 1. No acute pulmonary findings or new suspicious pulmonary nodules. Reviewed by: Shabnam Dai MD on 03/07/2023 5:25 PM PDT Approved by: Shabnam Dai MD on 03/07/2023 5:25 PM PDT Station ID: [id number]
== END 2023-03-07 13:32 | disposition home or self-care (01) ==
LOC: DI 13:31
PROVIDERS: ATTEND Internal Medicine Critical Care Medicine
DX: R91.8 Other nonspecific abnormal finding of lung field (principal)

== ENCOUNTER 2023-03-20 11:35 | Outpatient (CLI) | payer MEDICARE, OTHER ==
[2023-03-20 14:43] LABS: BASOPHILS # (AUTO) 0.1 10^3/uL (0.0-0.1); BASOPHILS % (AUTO) 1.4 %; EOSINOPHILS # (AUTO) 0.2 10^3/uL (0.0-0.7); EOSINOPHILS % (AUTO) 3.6 %; HCT - HEMATOCRIT 37.7 % (37.0-47.0); HGB - HEMOGLOBIN 12.2 g/dL (12.0-16.0); LYMPHOCYTES # (AUTO) 1.8 10^3/uL (1.5-3.5); LYMPHOCYTES % (AUTO) 30.9 %; MEAN CORPUSCULAR HEMOGLOBIN 30.7 pg (27.0-31.0); MEAN CORPUSCULAR HGB CONC 32.4 g/dL (32.0-36.0); MEAN PLATELET VOLUME 10.2 fL (7.9-10.8); MONOCYTES # (AUTO) 0.8 10^3/uL (0.0-1.0); MONOCYTES % (AUTO) 12.9 %; NEUTROPHILS % (AUTO) 50.9 %; PLT - PLATELET COUNT 352 10^3/uL (130-450); RED BLOOD COUNT 3.97 10^6/uL (4.20-5.40); RED CELL DISTRIBUTION WIDTH 13.7 % (12.0-15.0); WHITE BLOOD COUNT 5.9 x10^3/uL (4.8-10.8)
[2023-03-20 15:58] LABS: ALBUMIN/GLOBULIN RATIO 1.1 (1.0-2.2); ALKALINE PHOSPHATASE 68 IU/L (42-121); ALT ALANINE AMINOTRANSFERASE 16 IU/L (10-60); AST ASPARTATE AMINOTRANSFERASE 25 IU/L (10-42); BILIRUBIN,TOTAL 0.7 mg/dL (0.2-1.0); BUN - BLOOD UREA NITROGEN 23 mg/dL (6-20); CALCIUM 9.5 mg/dL (8.5-10.3); CARBON DIOXIDE - CO2 28 mmol/L (21-32); CHLORIDE 104 mmol/L (101-111); CREATININE 0.9 mg/dL (0.4-1.0); GFR - MDRD 61 (>89); GLUCOSE 104 mg/dL (70-100); POTASSIUM 4.5 mmol/L (3.5-5.0); SODIUM 136 mmol/L (135-145); TOTAL PROTEIN 7.7 g/dL (6.7-8.2)
[2023-03-20 15:59] LABS: CRP - C-REACTIVE PROTEIN < 1.0 mg/dL (0-1.0)
[2023-03-20 16:05] LABS: THYROID STIMULATING HORMONE 1.07 uIU/mL (0.34-5.60)
[2023-03-20 16:13] LABS: FERRITIN 104.5 ng/mL (11.0-306.8)
[2023-03-20 16:16] LABS: FOLATE 9.22 ng/mL (5.90 - >24.8)
[2023-03-22 15:09] LABS: A/G RATIO 0.9 (0.7-1.7); ALBUMIN 3.4 g/dL (2.9-4.4); ALPHA-1-GLOBULIN 0.2 g/dL (0.0-0.4); ALPHA-2-GLOBULIN 0.7 g/dL (0.4-1.0); GAMMA GLOBULIN 1.8 g/dL (0.4-1.8); GLOBULIN, TOTAL 3.7 g/dL (2.2-3.9); IMMUNOGLOBULIN A (IGA) <5 mg/dL (64-422); IMMUNOGLOBULIN G (IGG) 1933 mg/dL (586-1602); IMMUNOGLOBULIN M (IGM) 53 mg/dL (26-217); PROTEIN TOTAL 7.1 g/dL (6.0-8.5)
== END 2023-03-20 11:36 | disposition home or self-care (01) ==
LOC: LAB.S 11:35
PROVIDERS: ATTEND Internal Medicine
DX: J43.2 Centrilobular emphysema (principal); J45.909 Unspecified asthma, uncomplicated; M13.841 Other specified arthritis, right hand; G25.0 Essential tremor; M79.2 Neuralgia and neuritis, unspecified; D71 Functional disorders of polymorphonuclear neutrophils; M62.81 Muscle weakness (generalized); R91.8 Other nonspecific abnormal finding of lung field; M25.519 Pain in unspecified shoulder; Z87.891 Personal history of nicotine dependence
CPT/HCPCS: 36415; 80053; 82607; 82728; 82746; 82784; 84155; 84165; 84443; 85025; 85651; 86140; 86334

== ENCOUNTER 2023-06-07 15:58 | Outpatient (CLI) | payer MEDICARE, OTHER ==
--- NOTE | 2023-06-08 03:33 | Ultrasound Report ---
PROCEDURE: Ankle Brachial Index INDICATIONS: PVD TECHNIQUE: Ankle-brachial indices were obtained bilaterally and recorded. COMPARISONS: None. FINDINGS: Right ankle brachial index (RONALDO): 1.0 Left ankle brachial index (RONALDO): 1.0 IMPRESSION: 1. Ankle-brachial indices within normal limits bilaterally. Reviewed by: Ranjeet Diaz MD on 06/08/2023 3:32 AM PDT Approved by: Ranjeet Diaz MD on 06/08/2023 3:32 AM PDT Station ID: [id number]
== END 2023-06-07 15:59 | disposition home or self-care (01) ==
LOC: DI 15:58
PROVIDERS: ATTEND Internal Medicine
DX: I73.89 Other specified peripheral vascular diseases (principal)
CPT/HCPCS: 93922

== ENCOUNTER 2023-08-06 08:00 | Outpatient (CLI) | payer MEDICARE, OTHER | END 2023-08-06 23:59 | disposition home or self-care (01) | LOC: LAB.S 08:00 | PROVIDERS: ATTEND Registered Nurse | DX: R05.9 Cough, unspecified (principal); Z20.822 Contact with and (suspected) exposure to COVID-19 ==

== ENCOUNTER 2023-08-28 07:00 | Outpatient (CLI) | payer MEDICARE, OTHER ==
--- NOTE | 2023-08-28 13:01 | XRAY Report ---
PROCEDURE: Chest 2 View X-Ray INDICATIONS: COUGH TECHNIQUE: 2 views of the chest were acquired. COMPARISON: Chest x-ray 01/03/2023. FINDINGS: Surgical changes and devices: None. Lungs and pleura: No pleural effusions or pneumothorax. Lungs are hyperinflated. Chronic interstitia l markings including biapical pulmonary parenchymal scarring are redemonstrated.. Mediastinum: Mediastinal contours appear normal. Heart size is normal. Bones and chest wall: No suspicious bony lesions. Overlying soft tissues appear unremarkable. IMPRESSION: No acute cardiopulmonary process. Stable chronic pulmonary findings. Reviewed by: Toni Bond MD on 08/28/2023 1:00 PM PST Approved by: Toni Bond MD on 08/28/2023 1:00 PM PST Station ID: [id number]
== END 2023-08-28 23:59 | disposition home or self-care (01) ==
LOC: DI.S 07:00
PROVIDERS: ATTEND Registered Nurse
DX: Z20.822 Contact with and (suspected) exposure to COVID-19 (principal); R05.9 Cough, unspecified; R05.8 Other specified cough

== ENCOUNTER 2023-09-06 07:00 | Outpatient (CLI) | payer MEDICARE, OTHER ==
--- NOTE | 2023-09-06 15:42 | XRAY Report ---
PROCEDURE: Chest 2V INDICATIONS: COVID-19/COUGH/ACUTE LOWER RESPIRATORY INFECTION TECHNIQUE: 2 views of the chest were acquired. COMPARISON: Chest x-ray 08/28/2023. FINDINGS: Surgical changes and devices: None. Lungs and pleura: No pleural effusions or pneumothorax. Redemonstration of chronic prominent interst itial markings including biapical pleural-parenchymal scarring, stable compared to prior. Lungs are c lear. Mediastinum: Mediastinal contours appear normal. Heart size is normal. Bones and chest wall: No suspicious bony lesions. Overlying soft tissues appear unremarkable. IMPRESSION: No acute cardiopulmonary process. Stable chronic pulmonary findings. Reviewed by: Toni Bond MD on 09/06/2023 3:40 PM PST Approved by: Toni Bond MD on 09/06/2023 3:40 PM PST Station ID: [id number]
== END 2023-09-06 23:59 | disposition home or self-care (01) ==
LOC: DI.S 07:00
PROVIDERS: ATTEND Registered Nurse
DX: U07.1 COVID-19 (principal); J22 Unspecified acute lower respiratory infection; R05.9 Cough, unspecified

== ENCOUNTER 2023-09-07 11:14 | Outpatient (CLI) | payer MEDICARE, OTHER ==
[2023-09-07 11:31] LABS: BASOPHILS # (AUTO) 0.1 10^3/uL (0.0-0.1); BASOPHILS % (AUTO) 0.7 %; EOSINOPHILS # (AUTO) 0.6 10^3/uL (0.0-0.7); HCT - HEMATOCRIT 41.3 % (37.0-47.0); HGB - HEMOGLOBIN 13.2 g/dL (12.0-16.0); LYMPHOCYTES # (AUTO) 1.6 10^3/uL (1.5-3.5); LYMPHOCYTES % (AUTO) 16.7 %; MEAN CORPUSCULAR HEMOGLOBIN 29.7 pg (27.0-31.0); MEAN PLATELET VOLUME 9.1 fL (7.9-10.8); MONOCYTES # (AUTO) 1.4 10^3/uL (0.0-1.0); MONOCYTES % (AUTO) 14.4 %; PLT - PLATELET COUNT 322 10^3/uL (130-450); RED BLOOD COUNT 4.44 10^6/uL (4.20-5.40); RED CELL DISTRIBUTION WIDTH 13.5 % (12.0-15.0); WHITE BLOOD COUNT 9.6 x10^3/uL (4.8-10.8)
[2023-09-07 11:45] LABS: ALBUMIN/GLOBULIN RATIO 1.1 (1.0-2.2); BILIRUBIN,TOTAL 0.7 mg/dL (0.2-1.0); CALCIUM 9.8 mg/dL (8.5-10.3); CREATININE 0.9 mg/dL (0.6-1.3); POTASSIUM 4.1 mmol/L (3.5-4.5); TOTAL PROTEIN 7.8 g/dL (6.4-8.9)
[2023-09-07 12:01] LABS: THYROID STIMULATING HORMONE 1.31 uIU/mL (0.34-5.60)
--- NOTE | 2023-09-07 20:27 | Ultrasound Report ---
PROCEDURE: Duplex Lwr Ext Arterial Bilat INDICATIONS: PAD TECHNIQUE: Color and pulse Doppler interrogation was performed of both lower extremity arterial systems, with im age documentation. COMPARISON: Ankle brachial index on June 07, 2023 FINDINGS: Right lower extremity: Common femoral artery: 110 cm/sec, with biphasic flow. Deep femoral artery: 43 cm/sec, with biphasic flow. Proximal superficial femoral artery: 88 cm/sec, with biphasic flow. Mid superficial femoral artery: 100 cm/sec, with biphasic flow. Distal superficial femoral artery: 72 cm/sec, with biphasic flow. Popliteal artery: 57 cm/sec, with biphasic flow. Posterior tibial artery: 82 cm/sec, with biphasic flow. Anterior tibial artery/dorsalis pedis: 76/106 cm/sec, with biphasic flow. Arellano-scale imaging description: Mild scattered plaque. Left lower extremity: Common femoral artery: 101 cm/sec, with biphasic flow. Deep femoral artery: 71 cm/sec, with biphasic flow. Proximal superficial femoral artery: 109 cm/sec, with biphasic flow. Mid superficial femoral artery: 83 cm/sec, with biphasic flow. Distal superficial femoral artery: 102 cm/sec, with biphasic flow. Popliteal artery: 56 cm/sec, with biphasic flow. Posterior tibial artery: 92 cm/sec, with biphasic flow. Anterior tibial artery/dorsalis pedis: 87/76 cm/sec, with biphasic flow. Arellano-scale imaging description: Mild scattered plaque. IMPRESSION: Multiphasic waveforms of the bilateral lower extremity arterial vasculature with no velocity shift to suggest a hemodynamically significant stenosis. Reviewed by: Jackie Rodrigues MD on 09/07/2023 8:26 PM PST Approved by: Jackie Rodrigues MD on 09/07/2023 8:26 PM PST Station ID: [id number]
== END 2023-09-07 11:15 | disposition home or self-care (01) ==
LOC: DI 11:14
PROVIDERS: ATTEND Internal Medicine
DX: I73.9 Peripheral vascular disease, unspecified (principal); J22 Unspecified acute lower respiratory infection
CPT/HCPCS: 36415; 80053; 84443; 85025; 85379; 93925